=== PATIENT | male | born 1960 | race Caucasian/White ===

== ENCOUNTER 2017-09-29 09:40 | Emergency (ER) | payer SELFPAY ==
--- NOTE | 2017-09-29 09:53 | ED Physician Documentation ---
General Adult - HISTORIAN Historian: patient - HPI Stated Complaint: respiratory exposure Chief Complaint: General Adult Onset: hours Timing: better Severity: mild Further Comments: yes (Pt is a 57 yo male who states that he was exposed to a chlorine gas substance in a closed space for 2 minutes in his job working for [email or web address]. Pt has some mild sob and gagging at the time of initial exposure. Pt says he feels a little irritation with breathing. Pt has had similar episode on his job in the past, but this is mild in comparison. No n/v.) - ROS CONST: no problems EYES/ENT: none CVS/RESP: shortness of breath (mild, transient) GI/: none MS/SKIN/LYMPH: none NEURO/PSYCH: other (felt "a little foggy") - PAST HX Past History: other (cholecystectomy) Allergies/Adverse Reactions: Allergies Allergy/AdvReac Type Severity Reaction Status Date / Time No Known Drug Allergies Allergy Verified 09/29/17 10:09 Home Medications: Ambulatory Orders Medication Instructions Recorded NK [NK] 09/29/17 - SOCIAL HX Smoking History: non-smoker - FAMILY HX Family History: No - REVIEWED ASSESSMENTS Nursing Assessment Reviewed: Yes Vitals Reviewed: Yes Progress - Progress Progress: Pulmicort HFN x 1 Albuterol HFN x 1 improved mild pulmonary exposure to chloride chemical General Adult Physical Exam - PHYSICAL EXAM GENERAL APPEARANCE: no distress EENT: eye inspection normal, pharynx normal NECK: normal inspection, supple RESPIRATORY: no resp distress, chest non-tender, breath sounds normal CVS: reg rate & rhythm, heart sounds normal ABDOMEN: soft, no organomegaly, normal bowel sounds BACK: normal inspection SKIN: warm/dry, normal color EXTREMITIES: non-tender, normal range of motion, no evidence of injury NEURO: oriented X3, motor nml, sensation nml Discharge Clincal Impression: exposure to chloride chemical Referrals: Primary Doctor,No [Primary Care Provider] - Condition: Good Disposition: 01 HOME, SELF-CARE Decision to Admit: NO Decision Time: 11:20
[2017-09-29] MEDS ORDERED: ALBUTEROL SULFATE 2.5 MG/3 ML AMPUL.NEB NEB ONE (10:02)
[2017-09-29] MEDS ORDERED: BUDESONIDE 0.5MG/2ML AMPUL.NEB NEB ONE (10:03)
[2017-09-29] MEDS ORDERED: BUDESONIDE 0.5MG/2ML AMPUL.NEB NEB SCH (11:00)
--- NOTE | 2017-09-29 11:20 | Diagnostic Imaging Report ---
[facility] [address] [facility].[address] [id number] Report Submission Date: Sep 29, 2017 10:59:31 AM CDT Patient Study Name: ASHIA PALOMINO Date: Sep 29, 2017 10:39:45 AM CDT Modality Type: DX Gender: M Description: CHEST : 58 Institution: [facility] Physician: STEFANIE SAM PA and lateral chest Clinical history: Chest tightness and cough. Exposure to chlorine gas. Findings: Examination of the chest in PA and lateral views demonstrates the lungs to be clear. Cardiovascular and mediastinal silhouettes within normal limits. Bony thorax is intact. Impression: 1. Negative chest. Electronically signed on Sep 29, 2017 10:59:31 AM CDT by: Saad LU
[2017-09-29 11:21] VITALS: BP 136/74
== END 2017-09-29 11:20 | disposition home or self-care (01) ==
LOC: ED 09:40
DX: R06.02 Shortness of breath (principal); T59.4X4A Toxic effect of chlorine gas, undetermined, initial encounter; Y92.69 Other specified industrial and construction area as the place of occurrence of the external cause; Y93.9 Activity, unspecified; Y99.9 Unspecified external cause status; Z77.098 Contact with and (suspected) exposure to other hazardous, chiefly nonmedicinal, chemicals
CPT/HCPCS: 71046; 94640; 99284; J7626